=== PATIENT | male | born 1970 | race Caucasian/White ===

== ENCOUNTER 2024-01-15 10:09 | Outpatient (CLI) | payer OTHER, SELFPAY | END 2024-01-15 10:10 | disposition home or self-care (01) | PROVIDERS: PCP Family Medicine; Visit Provider Family Medicine | DX: Z00.00 Encounter for general adult medical examination without abnormal findings (principal); E78.00 Pure hypercholesterolemia, unspecified; Z12.5 Encounter for screening for malignant neoplasm of prostate | CPT/HCPCS: 80053; 80061; 80076; G0103 ==

== ENCOUNTER 2024-09-27 08:02 | Outpatient (CLI) | payer OTHER, SELFPAY | END 2024-09-27 08:03 | disposition home or self-care (01) | LOC: NFLDREF 13:48 | PROVIDERS: PCP Family Medicine; Referring Provider Family Medicine; Visit Provider Family Medicine | DX: E78.00 Pure hypercholesterolemia, unspecified (principal) | CPT/HCPCS: 80061; 80076 ==

== ENCOUNTER 2025-02-11 08:09 | Outpatient (CLI) | payer OTHER, SELFPAY | END 2025-02-11 08:10 | disposition home or self-care (01) | LOC: FRMREF 08:12 | PROVIDERS: PCP Family Medicine; Visit Provider Family Medicine | DX: E78.00 Pure hypercholesterolemia, unspecified (principal); R79.89 Other specified abnormal findings of blood chemistry; R68.82 Decreased libido; N52.9 Male erectile dysfunction, unspecified; Z12.5 Encounter for screening for malignant neoplasm of prostate | CPT/HCPCS: 80053; 80061; 84403; G0103 ==

== ENCOUNTER 2025-04-28 07:53 | Outpatient (CLI) | payer OTHER, SELFPAY ==
--- NOTE | 2025-04-28 08:57 | P.ANES_ITS ---
Anesthesia Charges Start Date/Time Anesthesia Start Date: 04/28/25 Anesthesia Start Time: 08:32 Stop Date/Time Anesthesia Stop Date: 04/28/25 Anesthesia Stop Time: 08:52 Coding CPT Codes CPT Codes: ISABEL LWR INTST SCR COLSC - [id number] ([id number]) P2 - PATIENT W/MILD SYST DISEASE, QX - COMMUNICATIONS BILLING ANALYST SVC W/ MD MED DIRECTION, QK - HIDE PULLER 2-4 CNCRNT ANES PROC
--- NOTE | 2025-04-28 08:57 | W.ANESCHARGE ---
Anesthesia Charges Start Date/Time Anesthesia Start Date: 04/28/25 Anesthesia Start Time: 08:32 Stop Date/Time Anesthesia Stop Date: 04/28/25 Anesthesia Stop Time: 08:52 Coding CPT Codes CPT Codes: ISABEL LWR INTST SCR COLSC - [id number] ([id number]) P2 - PATIENT W/MILD SYST DISEASE, QX - BOAT LABORER SVC W/ MD MED DIRECTION, QK - CLOTH DYE RANGE OPERATOR 2-4 CNCRNT ANES PROC
--- NOTE | 2025-04-28 08:58 | P.ANES_ITS ---
Anesthesia Charges Start Date/Time Anesthesia Start Date: 04/28/25 Anesthesia Start Time: 08:32 Stop Date/Time Anesthesia Stop Date: 04/28/25 Anesthesia Stop Time: 08:52 Coding CPT Codes CPT Codes: ISABEL LWR INTST SCR COLSC - [id number] ([id number]) P2 - PATIENT W/MILD SYST DISEASE, QK - JALOUSIE INSTALLER 2-4 CNCRNT ANES PROC
--- NOTE | 2025-04-28 08:58 | W.ANESCHARGE ---
Anesthesia Charges Start Date/Time Anesthesia Start Date: 04/28/25 Anesthesia Start Time: 08:32 Stop Date/Time Anesthesia Stop Date: 04/28/25 Anesthesia Stop Time: 08:52 Coding CPT Codes CPT Codes: ISABEL LWR INTST SCR COLSC - [id number] ([id number]) P2 - PATIENT W/MILD SYST DISEASE, QK - MEDICAL MANAGEMENT SPECIALIST 2-4 CNCRNT ANES PROC
== END 2025-04-28 07:54 | disposition home or self-care (01) ==
LOC: OP CLINIC 07:53
PROVIDERS: PCP Family Medicine; Visit Provider Internal Medicine
DX: Z12.11 Encounter for screening for malignant neoplasm of colon (principal); Z86.0100 Personal history of colon polyps, unspecified
CPT/HCPCS: 00812; 45378; J2704